=== PATIENT | female | born 1985 | race Caucasian/White ===

== ENCOUNTER 2017-07-02 11:12 | Observation (INO) | payer MEDICAID, OTHER ==
[2017-06-30 16:31] LABS: BASOPHILS % 0.4 % (0.0-2.0); EOSINOPHILS % 0.6 % (0.0-7.0); HEMOGLOBIN 14.2 g/dl (12.0-16.0); LYMPHOCYTES # 1.8 10^3/ul (0.8-2.9); LYMPHOCYTES % 26.3 % (15.0-51.0); MEAN CORPUSCULAR HEMOGLOBIN 31.2 pg (29.0-33.0); MEAN CORPUSCULAR HGB CONC 34.6 g/dl (32.0-37.0); MEAN CORPUSCULAR VOLUME 90.1 fl (82.0-101.0); MEAN PLATELET VOLUME 10.8 fl (7.4-10.4); MONOCYTE # 0.4 10^3/ul (0.3-0.9); NEUTROPHILS % 66.4 % (39.0-77.0); PLATELET COUNT 248 10^3/UL (140-415); RED BLOOD COUNT 4.55 10^6/ul (4.20-5.40); RED CELL DISTRIBUTION WIDTH 12.1 % (11.5-14.5)
[2017-06-30 16:33] LABS: ADD UMIC YES; UR ASCORBIC ACID NEGATIVE (NEGATIVE); UR BILIRUBIN (Dip) NEGATIVE (NEGATIVE); UR BLOOD (Dip) 2+ mg/dL (NEGATIVE); UR CLARITY SLIGHTLY CLOUDY (CLEAR); UR COLOR YELLOW (YELLOW); UR GLUCOSE (Dip) NEGATIVE (NEGATIVE); UR KETONES (Dip) NEGATIVE (NEGATIVE); UR LEUKOCYTE ESTERASE (Dip) TRACE Leu/ul (NEGATIVE); UR MUCUS FEW /HPF (NONE SEEN); UR NITRITE (Dip) NEGATIVE (NEGATIVE); UR RBC 5 /HPF (0-5); UR SPECIFIC GRAVITY (Dip) 1.026 (1.003-1.030); UR SQUAMOUS EPITHELIAL CELL FEW /HPF (FEW); UR TOTAL PROTEIN (Dip) NEGATIVE (NEGATIVE); UR UROBILINOGEN (Dip) NEGATIVE (NEGATIVE)
[2017-06-30 16:44] LABS: INR 0.95; PROTIME 12.7 Sec (12.2-14.2)
[2017-06-30 16:45] LABS: PARTIAL THROMBOPLASTIN TIME 26.8 Sec (25.0-35.0)
[2017-06-30 16:49] LABS: ALBUMIN 4.6 g/dl (3.3-4.9); ALBUMIN/GLOBULIN RATIO 1.21; BILIRUBIN,INDIRECT 0.5 mg/dl (0-1.1); BILIRUBIN,TOTAL 0.5 mg/dl (0.2-1.3); CALCIUM 9.5 mg/dl (8.4-10.2); CREATININE 0.97 mg/dl (0.44-1.00); POTASSIUM 3.8 mmol/L (3.5-5.1); TOTAL PROTEIN 8.4 g/dl (6.1-8.1)
[2017-06-30 17:19] LABS: CANCER ANTIGEN 125 83.3 U/ml (0.0-35.0)
[~2017-07-02] VITALS: Ht 154.9 cm; Wt 63.4 kg
[2017-07-02] VITALS (25 sets, daily range): BP systolic 95–122; BP diastolic 49–76; PULSE 57–92; RESP 13–20; Ht 154.9 cm; Wt 63.4 kg
[2017-07-02] MEDS: D5-NS + KCL 20 MEQ 1,000 ML IV SCH ×2 (06:00→16:00)
[~2017-07-02 11:12] MED LIST: CEFAZOLIN 2 GM/50 ML (PMX) 50 ML IVPB SCH; Metronidazole 500 MG in NS 100 ML IVPB SCH
--- NOTE | 2017-07-02 11:44 | HPN ---
Date/Time of Note Date/Time of Note DATE: 07/02/17 TIME: 11:44 Interval H&P Admission Note Pt. seen H&P reviewed: No system changes KAMALJIT BLACKWOOD MD Jul 02, 2017 11:44
[2017-07-02] MEDS ORDERED: ROCURONIUM 50 MG INJ ONE (16:13)
[2017-07-02] MEDS ORDERED: MIDAZOLAM 1 MG/ML 2 ML INJ ONE (16:13)
[2017-07-02] MEDS ORDERED: ROPIVACAINE 0.5 % 30 ML VIAL ONE (16:13)
[2017-07-02] MEDS ORDERED: METOCLOPRAMIDE 10 MG INJ ONE (16:13)
[2017-07-02] MEDS ORDERED: PROPOFOL 20 ML ONE (16:13)
[2017-07-02] MEDS ORDERED: metroNIDAZOLE 500 MG/NS (PMX) 100 ML IVPB ONE (16:29)
[2017-07-02] MEDS ORDERED: HYDROmorphONE 2 MG/ML SYG ONE (16:49)
[2017-07-02] MEDS ORDERED: ONDANSETRON 4 MG INJ ONE (16:49)
[2017-07-02] MEDS ORDERED: CEFAZOLIN 1 GM INJ ONE (16:49)
[2017-07-02] MEDS ORDERED: NEOSTIGMINE 3 MG/3 ML SYRINGE ONE (16:50)
[2017-07-02] MEDS ORDERED: GLYCOPYRROLATE 0.4 MG INJ ONE (16:50)
[2017-07-02] MEDS ORDERED: DIPHENHYDRAMINE 50 MG INJ IV PRN (17:00)
[2017-07-02] MEDS ORDERED: METOCLOPRAMIDE 10 MG INJ IV PRN (17:00)
[2017-07-02] MEDS ORDERED: ONDANSETRON 4 MG INJ IV PRN ×2 (17:00→22:00)
[2017-07-02] MEDS ORDERED: HYDROmorphONE (0.2 MG/ML) 10ML SYG IV PRN ×3 (17:00)
[2017-07-02] MEDS ORDERED: MEPERIDINE 25 MG INJ IV PRN (17:00)
[2017-07-02] MEDS ORDERED: EPHEDrine SULFATE 50 MG/5 ML SYG IV PRN (17:00)
[2017-07-02] MEDS ORDERED: OXYCODONE/ACETAMINOPHEN (5/325) TAB PO PRN ×2 (17:00)
[2017-07-02] MEDS ORDERED: EPHEDrine SULFATE 50 MG/5 ML SYG ONE (17:29)
--- NOTE | 2017-07-02 18:09 | OPPN ---
Date/Time of Note Date/Time of Note DATE: 07/02/17 TIME: 18:07 Operative Report Preoperative Diagnosis pelvic/incisional pain and mass Postoperative Diagnosis same path pending Operation/Procedure Performed excision of abdominal mass, repair of incisional hernia Anesthesia Type: general Estimated blood loss: 10 - 50 ml's Transfusion Required: no Specimens abdominal mass Grafts/Implants: none Complications: no KAMALJIT BLACKWOOD MD Jul 02, 2017 18:09
[2017-07-02] MEDS ORDERED: HYDROmorphONE 1 MG/ML SYG IV PRN (18:30)
[2017-07-02] MEDS ORDERED: ACETAMINOPHEN 325 MG TAB PO PRN (18:30)
[2017-07-02 18:52] LABS: BASOPHILS % 0.4 % (0.0-2.0); EOSINOPHILS % 0.6 % (0.0-7.0); HEMATOCRIT 36.9 % (37.0-47.0); HEMOGLOBIN 12.6 g/dl (12.0-16.0); LYMPHOCYTES % 29.3 % (15.0-51.0); MEAN CORPUSCULAR HEMOGLOBIN 31.1 pg (29.0-33.0); MEAN CORPUSCULAR HGB CONC 34.1 g/dl (32.0-37.0); MEAN CORPUSCULAR VOLUME 91.1 fl (82.0-101.0); MEAN PLATELET VOLUME 10.3 fl (7.4-10.4); MONOCYTE # 0.4 10^3/ul (0.3-0.9); MONOCYTES % 6.2 % (0.0-11.0); NEUTROPHILS % 63.2 % (39.0-77.0); PLATELET COUNT 186 10^3/UL (140-415); RED BLOOD COUNT 4.05 10^6/ul (4.20-5.40); RED CELL DISTRIBUTION WIDTH 11.9 % (11.5-14.5); WHITE BLOOD COUNT 6.8 10^3/ul (4.8-10.8)
[2017-07-02] MEDS ORDERED: CEFAZOLIN 1 GM in SOD CHLORIDE 0.9% 100 ML IVPB SCH (19:00)
[2017-07-02] MEDS ORDERED: metroNIDAZOLE 500 MG/NS (PMX) 100 ML IVPB SCH (19:00)
[2017-07-02 19:56] LABS: CALCIUM 8.6 mg/dl (8.4-10.2); CREATININE 0.65 mg/dl (0.44-1.00); POTASSIUM 3.6 mmol/L (3.5-5.1)
--- NOTE | 2017-07-02 20:52 | HP ---
DATE OF ADMISSION: 07/02/2017 HISTORY OF PRESENT ILLNESS: The patient is a 32-year-old female with a history of section x3. The patient was seen by as an outpatient for carol-incisional mass. The patient was brought into the hospital today for resection of mass and possible hernia repair. The patient postoperatively has significant pain and is being admitted for further evaluation and management. The patient denies history of chest pain or short of breath. No history of headache, dizziness, syncope. No history of recent fever or chills. No history of dysuria or hematuria. No history of weight loss. REVIEW OF SYSTEMS: Other than postoperative pain, the rest of the review of systems is unremarkable. PAST MEDICAL HISTORY: As stated above. ALLERGIES: NONE. SOCIAL HISTORY: No smoking. No alcohol. FAMILY HISTORY: Noncontributory. MEDICATIONS PRIOR TO ADMISSION: None. PHYSICAL EXAMINATION: GENERAL APPEARANCE: The patient to be conscious, awake, alert, fairly oriented. VITAL SIGNS: Pulse 72, respirations 16, blood pressure 102/61, O2 saturation 100 percent on 2 L nasal cannula. Temperature 98.2. HEENT: No eye discharge or redness. Oropharynx clear. NECK: Supple. No thyromegaly. CHEST: Clear to auscultation. CV: S1, S2. No murmur. ABDOMEN: Patient is status post surgery. EXTREMITIES: No edema. Pedal pulses palpable. SKIN: Without rash. NEUROLOGIC: The patient is awake, alert, fairly oriented, with no gross focal deficits. LABS: WBC 6.8, hemoglobin 12.6, platelets 196. Sodium 144, potassium 3.8, BUN 16, creatinine 0.9. Liver enzymes normal. CA- 125 antigen done on June 30 was 83.3. Recent beta HCG quantitative was negative. IMPRESSION: 1. Carol-incisional mass, status post surgery. 2. Status post section x3. 3. Elevated CA-125 antigen. PLAN: The patient will be admitted to the medical floor. Patient will be started on IV cefazolin and metronidazole as per protocol. Continue IV fluids, Tylenol, Percocet and IV Dilaudid for pain control. We will use SCD for DVT prophylaxis. We will do follow up labss. We will continue to follow her from medical standpoint. Postop care as per . Dictated By: Parviz Joyner MD /kiersten/lyndon /Document#: [id number]
[2017-07-02] MEDS: FAMOTIDINE 20 MG INJ IV SCH (22:00)
[2017-07-02 22:28] LABS: ADD UMIC YES; UR ASCORBIC ACID NEGATIVE (NEGATIVE); UR BILIRUBIN (Dip) NEGATIVE (NEGATIVE); UR BLOOD (Dip) 1+ mg/dL (NEGATIVE); UR CLARITY CLEAR (CLEAR); UR COLOR COLORLESS (YELLOW); UR GLUCOSE (Dip) NEGATIVE (NEGATIVE); UR KETONES (Dip) TRACE mg/dL (NEGATIVE); UR LEUKOCYTE ESTERASE (Dip) NEGATIVE Leu/ul (NEGATIVE); UR NITRITE (Dip) NEGATIVE (NEGATIVE); UR RBC 1 /HPF (0-5); UR SPECIFIC GRAVITY (Dip) 1.003 (1.003-1.030); UR TOTAL PROTEIN (Dip) NEGATIVE (NEGATIVE); UR UROBILINOGEN (Dip) NEGATIVE (NEGATIVE)
[2017-07-02] MEDS: CEFAZOLIN 1 GM/50 ML (PMX) 50 ML IVPB SCH (23:43)
[2017-07-02] MEDS: POTASSIUM CHLORIDE 20 MEQ in LACTATED RINGER'S 1,000 ML IV SCH (23:43)
[2017-07-03 00:04] VITALS: BP 94/52; RESP 18
[2017-07-03] MEDS: POTASSIUM CHLORIDE 20 MEQ in LACTATED RINGER'S 1,000 ML IV SCH ×2 (04:15→13:33)
[2017-07-03] MEDS: CEFAZOLIN 1 GM/50 ML (PMX) 50 ML IVPB SCH ×2 (05:22→13:44)
[2017-07-03] MEDS: OXYCODONE/ACETAMINOPHEN (5/325) TAB PO PRN ×4 (05:23→19:24)
[2017-07-03 05:38] VITALS: BP 103/60; PULSE 83; RESP 18
[2017-07-03 05:47] LABS: BASOPHILS % 0.2 % (0.0-2.0); EOSINOPHILS % 0.2 % (0.0-7.0); HEMOGLOBIN 11.8 g/dl (12.0-16.0); LYMPHOCYTES # 1.2 10^3/ul (0.8-2.9); LYMPHOCYTES % 14.3 % (15.0-51.0); MEAN CORPUSCULAR HEMOGLOBIN 30.6 pg (29.0-33.0); MEAN CORPUSCULAR HGB CONC 33.7 g/dl (32.0-37.0); MEAN CORPUSCULAR VOLUME 90.9 fl (82.0-101.0); MEAN PLATELET VOLUME 10.5 fl (7.4-10.4); MONOCYTE # 0.6 10^3/ul (0.3-0.9); MONOCYTES % 7.1 % (0.0-11.0); PLATELET COUNT 171 10^3/UL (140-415); RED BLOOD COUNT 3.85 10^6/ul (4.20-5.40); RED CELL DISTRIBUTION WIDTH 12.2 % (11.5-14.5)
[2017-07-03 06:04] LABS: INR 1.01; PROTIME 13.3 Sec (12.2-14.2)
[2017-07-03 06:17] LABS: CALCIUM 8.5 mg/dl (8.4-10.2); CREATININE 0.7 mg/dl (0.44-1.00); POTASSIUM 3.9 mmol/L (3.5-5.1)
[2017-07-03] MEDS: metroNIDAZOLE 500 MG/NS (PMX) 100 ML IVPB SCH ×2 (06:22→14:44)
[2017-07-03 08:02] VITALS: BP 100/59; RESP 18
[2017-07-03] MEDS: FAMOTIDINE 20 MG INJ IV SCH ×2 (09:01→22:07)
[2017-07-03 14:53] VITALS: BP 103/52; RESP 18
--- NOTE | 2017-07-03 15:54 | PN ---
Date/Time of Note Date/Time of Note DATE: 07/03/17 TIME: 15:51 Assessment/Plan VTE Prophylaxis VTE Prophylaxis Intervention: SCD's Lines/Catheters IV Catheter Type (from Nrs): Peripheral IV Urinary Cath still in place: Yes Assessment/Plan Assessment/Plan 1. Carol-incisional mass, status post surgery. - IV cefazolin and metronidazole as per protocol. - Continue IV fluids, Tylenol, Percocet and IV Dilaudid for pain control. 2. Status post section x3. 3. Elevated CA-125 antigen. 4. SCD for DVT prophylaxis. Exam/Review of Systems Vital Signs Vitals Vital Signs Date Time Temp Pulse Resp B/P Pulse Ox O2 Delivery O2 Flow Rate FiO2 07/03/17 14:53 98.7 77 18 103/52 96 07/02/17 23:00 Room Air Intake and Output 07/02/17 07/02/17 07/03/17 15:00 23:00 07:00 Intake Total 1100 ml 500 ml Output Total 475 ml 1500 ml Balance 625 ml -1000 ml Exam Constitutional: alert, well developed Respiratory: clear to auscultation, normal air movement Cardiovascular: nl pulses, regular rate and rhythm Gastrointestinal: non-tender, soft Musculoskeletal: nl extremities to inspection Results Result Diagram: 07/03/17 0520 07/03/17 0520 Results 24 hrs Laboratory Tests Test 07/02/17 18:30 07/02/17 18:45 07/03/17 05:20 Urine Color COLORLESS Urine Clarity CLEAR Urine pH 7.0 Urine Specific [place] 1.003 Urine Ketones TRACE A Urine Nitrite NEGATIVE Urine Bilirubin NEGATIVE Urine Urobilinogen NEGATIVE Urine Leukocyte Esterase NEGATIVE Urine Microscopic RBC 1 Urine Microscopic WBC 0 Urine Hemoglobin 1+ H Urine Glucose NEGATIVE Urine Total Protein NEGATIVE White Blood Count 6.8 8.0 Red Blood Count 4.05 L 3.85 L Hemoglobin 12.6 11.8 L Hematocrit 36.9 L 35.0 L Mean Corpuscular Volume 91.1 90.9 Mean Corpuscular Hemoglobin 31.1 30.6 Mean Corpuscular Hemoglobin Concent 34.1 33.7 Red Cell Distribution Width 11.9 12.2 Platelet Count 186 # 171 Mean Platelet Volume 10.3 10.5 H Neutrophils % 63.2 78.0 H Lymphocytes % 29.3 14.3 L Monocytes % 6.2 7.1 Eosinophils % 0.6 0.2 Basophils % 0.4 0.2 Nucleated Red Blood Cells % 0.0 0.0 Neutrophils # (Manual) 4.3 6.3 Lymphocytes # 2.0 1.2 Monocytes # 0.4 0.6 Eosinophils # 0.0 0.0 Basophils # 0.0 0.0 Nucleated Red Blood Cells # 0.0 0.0 Sodium Level 141 138 Potassium Level 3.6 3.9 Chloride Level 103 104 Carbon Dioxide Level 27 27 Anion Gap 15 11 Blood Urea Nitrogen 7 5 L Creatinine 0.65 0.70 Glucose Level 89 98 Calcium Level 8.6 8.5 Prothrombin Time 13.3 Prothrombin Time Ratio 1.0 INR International Normalized Ratio 1.01 Medications Medications Current Medications Acetaminophen (Tylenol Tab) 650 mg Q6H PRN PO PAIN AND OR ELEVATED TEMP; Start 07/02/17 at 18:30 Famotidine 20 mg 20 mg Q12 IV Last administered on 07/03/17 09:01; Admin Dose 20 MG; Start 07/02/17 at 21:00 Potassium Chloride/Lactated Ringer's (KCl/Lr) 1,010 ml @ 100 mls/hr Q10H6M IV Last administered on 07/03/17 13:33; Admin Dose 100 MLS/HR; Start 07/02/17 at 18 :09 Hydromorphone HCl (Dilaudid) 0.5 mg Q4 PRN IV PAIN LEVEL 6-10; Start 07/02/17 at 21:00 Oxycodone/ Acetaminophen (Percocet (5/ 325)) 1 tab Q4H PRN PO PAIN Last administered on 07/03/17 13:33; Admin Dose 1 TAB; Start 07/02/17 at 20:00 Ondansetron HCl 4 mg 4 mg Q4H PRN IV NAUSEA AND/OR VOMITING Last administered on 07/02/17 22:00; Admin Dose 4 MG; Start 07/02/17 at 22:00 Cefazolin Sodium 50 ml @ 100 mls/hr Q8 IVPB Last administered on 07/03/17 13: 44; Admin Dose 100 MLS/HR; Start 07/02/17 at 22:30; Stop 07/03/17 at 21:59 Metronidazole (Flagyl 500 Mg (Pmx)) 100 ml @ 100 mls/hr Q8 IVPB Last administered on 07/03/17t 14:44; Admin Dose 100 MLS/HR; Start 07/03/17 at 06:00; Stop 07/03/17 at 21:59 YOANNA OROZCO Jul 03, 2017 15:54
[2017-07-03 20:50] VITALS: BP 101/56; RESP 20
[2017-07-04] MEDS: OXYCODONE/ACETAMINOPHEN (5/325) TAB PO PRN ×2 (02:13→12:45)
[2017-07-04] MEDS: POTASSIUM CHLORIDE 20 MEQ in LACTATED RINGER'S 1,000 ML IV SCH ×2 (02:14→10:33)
[2017-07-04 03:06] VITALS: BP 100/52; RESP 20
[2017-07-04 05:26] LABS: BASOPHILS % 0.3 % (0.0-2.0); EOSINOPHILS # 0.1 10^3/ul (0.0-0.5); EOSINOPHILS % 1.7 % (0.0-7.0); HEMATOCRIT 35.6 % (37.0-47.0); HEMOGLOBIN 11.8 g/dl (12.0-16.0); LYMPHOCYTES # 1.5 10^3/ul (0.8-2.9); LYMPHOCYTES % 20.6 % (15.0-51.0); MEAN CORPUSCULAR HEMOGLOBIN 30.4 pg (29.0-33.0); MEAN CORPUSCULAR HGB CONC 33.1 g/dl (32.0-37.0); MEAN CORPUSCULAR VOLUME 91.8 fl (82.0-101.0); MEAN PLATELET VOLUME 10.8 fl (7.4-10.4); MONOCYTE # 0.7 10^3/ul (0.3-0.9); MONOCYTES % 9.3 % (0.0-11.0); NEUTROPHILS % 67.8 % (39.0-77.0); PLATELET COUNT 170 10^3/UL (140-415); RED BLOOD COUNT 3.88 10^6/ul (4.20-5.40); RED CELL DISTRIBUTION WIDTH 12.3 % (11.5-14.5); WHITE BLOOD COUNT 7.2 10^3/ul (4.8-10.8)
[2017-07-04 05:55] LABS: CALCIUM 8.3 mg/dl (8.4-10.2); CREATININE 0.72 mg/dl (0.44-1.00); POTASSIUM 3.8 mmol/L (3.5-5.1)
[2017-07-04 08:00] VITALS: BP 106/58; RESP 20
[2017-07-04] MEDS: FAMOTIDINE 20 MG INJ IV SCH (08:41)
[2017-07-04] MEDS: HYDROmorphONE 1 MG/ML SYG IV PRN ×2 (08:43→15:10)
--- NOTE | 2017-07-04 10:54 | PN ---
Date/Time of Note Date/Time of Note DATE: 07/04/17 TIME: 10:53 Assessment/Plan VTE Prophylaxis VTE Prophylaxis Intervention: other Lines/Catheters IV Catheter Type (from Nrsg): Peripheral IV Urinary Cath still in place: Yes Reason Cath still needed: skin wounds contaminated by urine Assessment/Plan Chief Complaint/Hosp Course 1. Carol-incisional mass, status post surgery. - IV cefazolin and metronidazole as per protocol. - Continue IV fluids, Tylenol, Percocet and IV Dilaudid for pain control. 2. Status post section x3. 3. Elevated CA-125 antigen. 4. SCD for DVT prophylaxis. Problems: Subjective 24 Hr Interval Summary Free Text/Dictation Patient complain of abdominal pain Exam/Review of Systems Vital Signs Vitals Vital Signs Date Time Temp Pulse Resp B/P Pulse Ox O2 Delivery O2 Flow Rate FiO2 07/04/17 08:00 99.0 90 20 106/58 97 07/02/17 23:00 Room Air Intake and Output 07/03/17 07/03/17 07/04/17 15:00 23:00 07:00 Intake Total 1160 ml 1200 ml 1000 ml Output Total 1200 ml Balance 1160 ml 0 ml 1000 ml Exam Constitutional: well developed Head: atraumatic, normocephalic Neck: supple Respiratory: diminished breath sounds Cardiovascular: regular rate and rhythm Gastrointestinal: non-tender, soft Extremities: normal pulses Results Result Diagram: 07/04/17 0447 07/04/17 0447 Results 24 hrs Laboratory Tests Test 07/04/17 04:47 White Blood Count 7.2 Red Blood Count 3.88 L Hemoglobin 11.8 L Hematocrit 35.6 L Mean Corpuscular Volume 91.8 Mean Corpuscular Hemoglobin 30.4 Mean Corpuscular Hemoglobin Concent 33.1 Red Cell Distribution Width 12.3 Platelet Count 170 Mean Platelet Volume 10.8 H Neutrophils % 67.8 Lymphocytes % 20.6 Monocytes % 9.3 Eosinophils % 1.7 Basophils % 0.3 Nucleated Red Blood Cells % 0.0 Neutrophils # (Manual) 4.9 Lymphocytes # 1.5 Monocytes # 0.7 Eosinophils # 0.1 Basophils # 0.0 Nucleated Red Blood Cells # 0.0 Sodium Level 138 Potassium Level 3.8 Chloride Level 105 Carbon Dioxide Level 27 Anion Gap 10 Blood Urea Nitrogen 5 L Creatinine 0.72 Glucose Level 89 Calcium Level 8.3 L Medications Medications Current Medications Acetaminophen (Tylenol Tab) 650 mg Q6H PRN PO PAIN AND OR ELEVATED TEMP; Start 07/02/17 at 18:30 Famotidine 20 mg 20 mg Q12 IV Last administered on 07/04/17 08:41; Admin Dose 20 MG; Start 07/02/17 at 21:00 Potassium Chloride/Lactated Ringer's (KCl/Lr) 1,010 ml @ 100 mls/hr Q10H6M IV Last administered on 07/04/17 02:14; Admin Dose 100 MLS/HR; Start 07/02/17 at 18 :09 Hydromorphone HCl (Dilaudid) 0.5 mg Q4 PRN IV PAIN LEVEL 6-10 Last administered on 07/04/17 08:43; Admin Dose 0.5 MG; Start 07/02/17 at 21:00 Oxycodone/ Acetaminophen (Percocet (5/ 325)) 1 tab Q4H PRN PO PAIN Last administered on 07/04/17 02:13; Admin Dose 1 TAB; Start 07/02/17 at 20:00 Ondansetron HCl (Zofran Inj) 4 mg Q4H PRN IV NAUSEA AND/OR VOMITING Last administered on 07/02/17 22:00; Admin Dose 4 MG; Start 07/02/17 at 22:00 CRISTINA FELDER Jul 04, 2017 10:53
[2017-07-04 14:00] VITALS: BP 107/55; RESP 20
--- NOTE | 2017-07-04 22:04 | OPR ---
Date/Time of Note Date/Time of Note DATE: 07/04/17 TIME: 22:03 Operative Report Free Text/Dictation OPERATIVE REPORT [facility] Name: Libertad Rosas Date: 07/02/17 Preoperative Diagnosis: 1- Pelvic/abdominal pain 2- Possible incisional hernia Postoperative Diagnosis: 1- Same pathology pending 2- Incisional hernia Procedures: Surgeon: Dr. Meraz Lead Application Architect: Dr. Zamora Anesthesia: General Indications for Procedure: The patient is a 32-year old female with 2-3 cm painful left lower abdominal wall mass and possible hernia for a excision and repair with all risks considered. Findings and Summary After exploration exploration without entering the peritoneum we a dense firm mass densely adherent to the musculature and peritoneum which was resected with en-bloc adipose tissue and minimal musculature without incident, pathology pending. Findings and Procedure: After being prepped and draped in the usual manner a transverse skin incision was made of appropriate length over the firm mass with 2-3 cm margins. The Name: Libertad Nolasco Medical electrocautery was then used to dissect around the mass with adipose tissue and sharp dissection was necessary deeply as the mass was densely adherent to the peritoneum, but the cavity was not entered. The mass was removed en-bloc and had margins. At this time, packing was placed and packing was removed, the wound thoroughly irrigated, hemostasis confirmed. The muscles observed were approximated with 2-0 Monocryl suture. Subsequently the fascia which was defected was mobilized with the electrocautery and was closed with interrupted 1 - Prolene suture. The subcutaneous tissue was irrigated and the skin was closed with 3-0 Vicryl suture and subcuticular 4-0 Monocryl suture. The sponge , needle, and instrument were correct two times. The estimated blood loss was minimal. The patient tolerated the procedure well and left the OR in good condition. Celio Meraz M.D. Anesthesia Type: general Estimated Blood Loss: 10 - 50 ml's Transfusion Required: no Complications: no CELIO MERAZ MD Jul 04, 2017 22:04
== END 2017-07-04 19:20 | disposition home or self-care (01) ==
LOC: SDS 11:12 → MS1 20:06 → SDS 20:16
DX: N80.8 Other endometriosis (principal); K43.2 Incisional hernia without obstruction or gangrene
CPT/HCPCS: 22902; 80048; 80053; 81001; 84702; 85025; 85610; 85730; 86304; 86850; 86900; 86901; 86920; 87086; 88307; J0690; J1170; J2250; J2405; J2710; J2765; J2795; J3480; J7120; Z7500; Z7512; Z7610; G0378